=== PATIENT | male | born 1995 | race Caucasian/White ===

== ENCOUNTER 2018-01-20 15:39 | Emergency (ER) | payer OTHER ==
[~2018-01-20] VITALS: Ht 177.8 cm; Wt 97.5 kg
[2018-01-20] MEDS ORDERED: TETANUS,DIPTH,PERTUSS P/F (BOOSTRIX) 0.5 ML VIAL IM STA (15:57)
[2018-01-20] MEDS ORDERED: LIDOCAINE 1% INJ 50 ML (XYLOCAINE) VIAL IJ STA (15:57)
[2018-01-20 16:01] VITALS: BP 150/87
--- NOTE | 2018-01-20 16:22 | ED Upper Extremity ---
General Chief Complaint: Laceration Stated Complaint: LEFT INDEX FINGER LAC Nursing Triage Note: Patient advises he had just finish cleaning his knife and went to close it and cut his finger. Nursing Sepsis Screen: No Definite Risk Source: patient Exam Limitations: no limitations History of Present Illness Date Seen by Provider: Jan 20, 2018 Time Seen by Provider: 15:57 Initial Comments Here with laceration to the thumb side aspect of the left index finger between the IP joint and the DIP joint. Possibly 2 cm. States he was closing his knife and it shut on his finger causing a laceration. Retains range of motion and distal sensation. Tetanus is unknown. No other injuries. He is left-hand dominant. Onset: just prior to arrival Severity: mild Pain/Injury Location: left 2nd finger Method of Injury: incised Modifying Factors: Improves With Immobilization, Worse With Movement Allergies and Home Medications Allergies Coded Allergies: No Known Drug Allergies (Unverified , 01/20/18) Patient Home Medication List Home Medication List Reviewed: Yes Constitutional: see HPI, No chills, No fever Respiratory: no symptoms reported Cardiovascular: no symptoms reported Skin: see HPI, No change in color, lesions Past Mkajnah-Ihmsvm-Saenzf Hx Past Med/Social Hx: Reviewed Nursing Past Med/Soc Hx Patient Social History Alcohol Use: Occasionally Uses Recreational Drug Use: No Smoking Status: Never a Smoker 2nd Hand Smoke Exposure: No Recent Foreign Travel: No Contact w/Someone Who Travel: No Recent Infectious Disease Expo: No Recent Hopitalizations: No Physical Abuse: No Sexual Abuse: No Seasonal Allergies Seasonal Allergies: No Past Medical History Surgeries: Yes Orthopedic Respiratory: No Cardiac: Yes Hypertension Neurological: No Genitourinary: No Gastrointestinal: No Musculoskeletal: No Endocrine: No HEENT: No Cancer: No Psychosocial: No Nursing Suicide Risk Score: 0 Integumentary: No Family Medical History Reviewed Nursing Family Hx No Pertinent Family Hx Physical Exam Vital Signs Vital Signs - First Documented 01/20/18 01/20/18 15:52 16:01 Temp 97.8 B/P (MAP) 150/87 (108) Capillary Refill : Less Than 3 Seconds General Appearance: WD/WN, no apparent distress Cardiovascular: regular rate, rhythm, no murmur Respiratory: lungs clear, normal breath sounds Hand: Left, laceration (left index finger thumb side horizontally across surface from top to bottom approximately 2 cm with bleeding controlled.) Neurologic/Psychiatric: no motor/sensory deficits, alert, normal mood/affect, oriented x 3 Skin: normal color, warm/dry, other (laceration as above) Procedures/Interventions Wound Location: Upper Extremities Other Wound Location Left index finger thumb side surface 2 cm laceration Wound Length (cm): 2 Wound's Depth, Shape: superficial, linear Wound Explored: contaminated Irrigated w/ Saline (ccs): 50 Betadine Prep?: Yes Anesthesia: 1% Lidocaine Volume Anesthetic (ccs): 5 Suture: Prolene Suture Size: 4-0 Number of Sutures: 3 Layer Closure?: 1 Number Deep Layer Sutures: 0 Progress Digital block with 4 mL of 1 percent lidocaine. 1 mL local lidocaine instilled. Closed with simple interrupted sutures 3. Care with antibiotic ointment and dressing. Tolerated procedure well without complications. Progress/Results/Core Measures My Orders Orders - ADAM FRANCIS MD Dipht,Gary(Meekll),Tet Adult (Boostrix (01/20/18 15:57) Lidocaine 1% Inj 50 Ml (Xylocaine 1% Inj (01/20/18 15:57) Vital Signs/I&O 01/20/18 01/20/18 15:52 16:01 Temp 97.8 98.9 B/P (MAP) 150/87 (108) Blood Pressure Mean: 108 Progress Note : Progress Note Seen and evaluated. Tetanus updated. Laceration repaired by me. Discharged home with return precautions. Patient verbalize understanding instructions and agreement with plan. Departure Impression Primary Impression: Laceration of left index finger Qualified Codes: S61.211A - Laceration without foreign body of left index finger without damage to nail, initial encounter Disposition: HOME, SELF-CARE Condition: Improved Departure-Patient Inst. Decision time for Depature: 16:21 Referrals: NO,LOCAL PHYSICIAN (PCP/Family) Primary Care Physician Patient Instructions: Laceration Repair With Stitches (DC) Add. Discharge Instructions: All discharge instructions reviewed with patient and/or family. Voiced understanding. Sutures out in 10 days. Keep dressing in place for 2 days and then you may remove and replace with antibiotic ointment and simple dressing. You may wash the wound twice daily or as needed with mild soap and water. Be gentle over the wound. You may shower but do not soak the wound in any body of water. Return for worse pain, swelling, increasing redness, red streaks up the hand or other concerns as needed. ADAM FRANCIS MD Jan 20, 2018 16:22
[2018-01-20 16:31] VITALS: BP 150/87
== END 2018-01-20 16:29 | disposition home or self-care (01) ==
LOC: EDUNIT# 15:39 → ER 15:42
DX: S61.211A Laceration without foreign body of left index finger without damage to nail, initial encounter (principal); I10 Essential (primary) hypertension; Z23 Encounter for immunization; Z98.890 Other specified postprocedural states; W26.0XXA Contact with knife, initial encounter
CPT/HCPCS: 12042; 90715

== ENCOUNTER 2018-01-30 10:04 | Emergency (ER) | payer OTHER | END 2018-01-30 10:57 | disposition left against medical advice (07) | LOC: EDUNIT# 10:04 → ER 10:06 | DX: T14.8XXD Other injury of unspecified body region, subsequent encounter (principal); X58.XXXD Exposure to other specified factors, subsequent encounter ==